=== PATIENT | female | born 1955 | race Caucasian/White ===

== ENCOUNTER 2018-06-08 12:36 | Day surgery (SDC) | payer BC ==
[~2018-06-08 12:36] MED LIST: ALBU90OI INH; FLUT.05NI; GABA300 PO; NIAC500 PO; SERT100 PO; Ultram50 MG PO; Zofran Odt4 MG SL
[2018-06-08] MEDS ORDERED: ESCI20 PO (15:21)
[2018-06-08] MEDS ORDERED: Crestor20 MG PO (15:22)
[2018-06-08 17:34] LABS: Albumin, Blood 3.4 g/dL (3.4-5.0); Anion Gap 8 mmol/L (6-16); Blood Urea Nitrogen 33 mg/dL (8-24); Bun/Creatinine Ratio 12.4 (12.0-20.0); CO2, Blood 21 mmol/L (21-32); Calcium, Blood 7.8 mg/dL (8.5-10.1); Chloride, Blood 109 mmol/L (98-108); Creatinine, Blood 2.67 mg/dL (0.40-1.00); Glomerular Filtration Rate 19 (60-); Glucose, Blood 97 mg/dL (70-99); Phosphorus, Blood 2.7 mg/dL (2.5-4.9); Potassium, Blood 3.7 mmol/L (3.5-5.5); Sodium, Blood 138 mmol/L (136-145)
== END 2018-06-08 16:30 | disposition home or self-care (01) ==
LOC: ATC 12:36
PROVIDERS: Internal Medicine
DX: N18.3 Chronic kidney disease, stage 3 (moderate) (principal); R80.9 Proteinuria, unspecified; I10 Essential (primary) hypertension; E78.5 Hyperlipidemia, unspecified; J44.9 Chronic obstructive pulmonary disease, unspecified; Z87.891 Personal history of nicotine dependence
CPT/HCPCS: 80069; 96365; J0696; J7030

== ENCOUNTER → 2018-06-19 | Outpatient (CLI) | payer BC ==
[~2018-06-19] MED LIST changes: +Crestor20 MG PO; +ESCI20 PO
[2018-06-19 15:12] LABS: Creatinine Urine 33.6 mg/dL (27.00-270.00); Protein, Urine Quantitative 58.4 mg/dL (0.0-11.9)
[2018-06-23 14:07] LABS: M-SPIKE, % Not Observed % (Not Observed); PROTEIN,TOTAL,URINE 45.9 mg/dL (Not Estab.)
== END ==
LOC: LAB SHORT 14:20 → LAB 14:20
PROVIDERS: Internal Medicine
DX: N17.9 Acute kidney failure, unspecified (principal); R80.9 Proteinuria, unspecified
CPT/HCPCS: 81050; 82570; 84156; 84166

== ENCOUNTER → 2018-07-21 | Outpatient (CLI) | payer BC ==
[2018-07-25 15:06] LABS: HPV 16 Positive (Negative); HPV 18 Negative (Negative); HPV OTHER HR TYPES Negative (Negative)
== END | disposition home or self-care (01) ==
LOC: LAB SHORT 17:40 → LAB 17:40
PROVIDERS: Nurse Practitioner Family
DX: Z01.411 Encounter for gynecological examination (general) (routine) with abnormal findings (principal)
CPT/HCPCS: 87624; G0145

== ENCOUNTER → 2018-08-29 | Outpatient (CLI) | payer BC | END | disposition home or self-care (01) | LOC: LAB SHORT 08:24 → PLD 08:24 | DX: N88.8 Other specified noninflammatory disorders of cervix uteri (principal); R87.618 Other abnormal cytological findings on specimens from cervix uteri | CPT/HCPCS: 88305 ==

== ENCOUNTER → 2019-02-15 | Outpatient (CLI) | payer MEDICARE ==
[2019-02-17 05:53] LABS: Stool Occult Bld Immuno 1 Positive (NEGATIVE); Stool Occult Bld Immuno 2 Positive (NEGATIVE); Stool Occult Bld Immuno 3 Positive (NEGATIVE)
== END | disposition home or self-care (01) ==
LOC: LAB EV 13:23
PROVIDERS: Nurse Practitioner Family
DX: D64.9 Anemia, unspecified (principal)
CPT/HCPCS: 82274

== ENCOUNTER 2019-02-20 15:33 | Day surgery (SDC) | payer MEDICARE ==
[2019-04-18] MEDS ORDERED: ESCI20 PO (14:37)
== END 2019-02-20 17:12 | disposition home or self-care (01) ==
LOC: ATC 15:33
DX: N17.9 Acute kidney failure, unspecified (principal); I12.9 Hypertensive chronic kidney disease with stage 1 through stage 4 chronic kidney disease, or unspecified chronic kidney disease; N18.3 Chronic kidney disease, stage 3 (moderate); D63.1 Anemia in chronic kidney disease; J44.9 Chronic obstructive pulmonary disease, unspecified; F32.9 Major depressive disorder, single episode, unspecified; F41.9 Anxiety disorder, unspecified; G43.909 Migraine, unspecified, not intractable, without status migrainosus; E78.5 Hyperlipidemia, unspecified; E55.9 Vitamin D deficiency, unspecified; Z79.899 Other long term (current) drug therapy; Z87.891 Personal history of nicotine dependence; Z88.5 Allergy status to narcotic agent; Z88.8 Allergy status to other drugs, medicaments and biological substances; Z91.048 Other nonmedicinal substance allergy status
CPT/HCPCS: 96360; J7030

== ENCOUNTER 2019-04-25 07:01 | Day surgery (SDC) | payer MEDICARE ==
[~2019-04-25] VITALS: Ht 152.4 cm; Wt 78.1 kg
== END 2019-04-25 09:39 | disposition home or self-care (01) ==
LOC: ORSCSDS 07:01
PROVIDERS: Internal Medicine Gastroenterology
PROC: 0DBK8ZX Excision of Ascending Colon, Via Natural or Artificial Opening Endoscopic, Diagnostic (ICD-10-PCS; principal; 2019-04-25 08:00)
PROC: 0DB98ZX Excision of Duodenum, Via Natural or Artificial Opening Endoscopic, Diagnostic (ICD-10-PCS; principal; 2019-04-25 08:00)
PROC: 0DBN8ZX Excision of Sigmoid Colon, Via Natural or Artificial Opening Endoscopic, Diagnostic (ICD-10-PCS; principal; 2019-04-25 08:00)
PROC: 0DBM8ZX Excision of Descending Colon, Via Natural or Artificial Opening Endoscopic, Diagnostic (ICD-10-PCS; principal; 2019-04-25 08:00)
PROC: 0DB68ZX Excision of Stomach, Via Natural or Artificial Opening Endoscopic, Diagnostic (ICD-10-PCS; principal; 2019-04-25 08:00)
DX: D50.9 Iron deficiency anemia, unspecified (principal); K92.1 Melena; D12.2 Benign neoplasm of ascending colon; D12.4 Benign neoplasm of descending colon; D12.5 Benign neoplasm of sigmoid colon; K29.80 Duodenitis without bleeding; K29.70 Gastritis, unspecified, without bleeding; K57.30 Diverticulosis of large intestine without perforation or abscess without bleeding; Z87.891 Personal history of nicotine dependence; I10 Essential (primary) hypertension; Z86.718 Personal history of other venous thrombosis and embolism; N18.3 Chronic kidney disease, stage 3 (moderate); Z79.01 Long term (current) use of anticoagulants; E78.5 Hyperlipidemia, unspecified; J44.9 Chronic obstructive pulmonary disease, unspecified
CPT/HCPCS: 88305; 88342; J0461; J2405; J2704

== ENCOUNTER → 2021-02-10 | Outpatient (CLI) | payer MEDICARE ==
[2021-02-12 15:12] LABS: HPV 16 Negative (Negative); HPV 18 Negative (Negative); HPV OTHER HR TYPES Negative (Negative)
== END | disposition home or self-care (01) ==
LOC: LAB 17:10 → LAB SHORT 17:10
PROVIDERS: Obstetrics & Gynecology
DX: Z01.419 Encounter for gynecological examination (general) (routine) without abnormal findings (principal)
CPT/HCPCS: 87624; G0123

== ENCOUNTER → 2021-07-06 | Outpatient (CLI) | payer MEDICARE | END | disposition home or self-care (01) | LOC: LAB SHORT 08:52 | DX: L57.0 Actinic keratosis (principal); L81.4 Other melanin hyperpigmentation | CPT/HCPCS: 88305; 88312 ==

== ENCOUNTER 2024-04-12 13:19 | Day surgery (SDC) | payer MEDICARE ==
[~2024-04-12] VITALS: Ht 154.9 cm; Wt 82.8 kg
[~2024-04-12 13:19] MED LIST changes: +Atropine Sulfate 0.1 MG/ML 10ML SYR ONE; +Glycopyrrolate 0.2 MG/ML 1MLVIAL ONE; +Lactated Ringer's 1,000 ML IV ONE; +Ondansetron HCl 2 MG / ML 2ML Vial ONE; +ePHEDrine Sulfate 50 MG/ML 1ML Injection ONE; +propofoL 50 ML IV ONE
[2024-04-12] MEDS ORDERED: METF500 PO (13:48)
[2024-04-12] MEDS ORDERED: ROSUVASTATIN CA10 MG PO (13:49)
[2024-04-12] MEDS ORDERED: Lactated Ringer's 1,000 ML IV ONE (13:58)
[2024-04-12 15:53] VITALS: BP 132/78
== END 2024-04-12 15:58 | disposition home or self-care (01) ==
LOC: ORSCSDS 13:19
PROVIDERS: Internal Medicine Gastroenterology
PROC: 0DBK8ZX Excision of Ascending Colon, Via Natural or Artificial Opening Endoscopic, Diagnostic (ICD-10-PCS; principal; 2024-04-12 14:45)
DX: Z12.11 Encounter for screening for malignant neoplasm of colon (principal); D12.2 Benign neoplasm of ascending colon; K57.30 Diverticulosis of large intestine without perforation or abscess without bleeding; Z86.0101 Personal history of adenomatous and serrated colon polyps; I10 Essential (primary) hypertension; E11.22 Type 2 diabetes mellitus with diabetic chronic kidney disease; I12.9 Hypertensive chronic kidney disease with stage 1 through stage 4 chronic kidney disease, or unspecified chronic kidney disease; N18.30 Chronic kidney disease, stage 3 unspecified; G47.33 Obstructive sleep apnea (adult) (pediatric); J44.9 Chronic obstructive pulmonary disease, unspecified; E78.5 Hyperlipidemia, unspecified; E66.9 Obesity, unspecified; Z68.34 Body mass index [BMI] 34.0-34.9, adult; Z79.84 Long term (current) use of oral hypoglycemic drugs; Z79.899 Other long term (current) drug therapy; Z87.891 Personal history of nicotine dependence
CPT/HCPCS: 82947; 88305; J0461; J2405; J2704; J7120

== ENCOUNTER → 2024-04-16 | Outpatient (CLI) | payer MEDICARE ==
[~2024-04-16] MED LIST changes: -Atropine Sulfate 0.1 MG/ML 10ML SYR ONE; -Glycopyrrolate 0.2 MG/ML 1MLVIAL ONE; -Lactated Ringer's 1,000 ML IV ONE; +METF500 PO; -Ondansetron HCl 2 MG / ML 2ML Vial ONE; +ROSUVASTATIN CA10 MG PO; -ePHEDrine Sulfate 50 MG/ML 1ML Injection ONE; -propofoL 50 ML IV ONE
[2024-04-24 15:29] LABS: HPV HIGH RISK BY TMA Not Detected; HPV SOURCE Cervical
== END ==
LOC: LAB SHORT 16:35 → LAB 16:35
PROVIDERS: Family Medicine
DX: Z01.419 Encounter for gynecological examination (general) (routine) without abnormal findings (principal); Z87.42 Personal history of other diseases of the female genital tract
CPT/HCPCS: 87624; G0123

== ENCOUNTER → 2024-12-10 | Outpatient (CLI) | payer MEDICARE ==
[2024-12-10 19:06] LABS: Campylobacter Sp Not Detected (NOT DETECT); E. Coli O157 Not Detected (NOT DETECT); Enteroaggregative E. coli-EAEC Not Detected (NOT DETECT); Enteropathogenic E. coli-EPEC Not Detected (NOT DETECT); Enterotoxigenic E. coli-ETEC Not Detected (NOT DETECT); Salmonella Sp Not Detected (NOT DETECT); Shiga Toxin-prod E. coli-STEC Not Detected (NOT DETECT); Shigella/Enteroin E. coli-EIEC Not Detected (NOT DETECT); Vibrio Sp Not Detected (NOT DETECT)
== END ==
LOC: LAB SHORT 13:00 → LAB 13:00
PROVIDERS: Physician Assistant Medical
DX: R19.7 Diarrhea, unspecified (principal)
CPT/HCPCS: 87507

== ENCOUNTER 2024-12-29 14:59 | Inpatient (IN) | payer MEDICARE ==
[~2024-12-29] VITALS: Ht 157.5 cm; Wt 74.8 kg
[~2024-12-29 14:59] MED LIST changes: -ROSUVASTATIN CA10 MG PO; +ROSUVASTATIN CA20 MG PO
[2024-12-29 15:50] LABS: BASOPHILS ABSOLUTE AUTO 0.03 K/mm3 (0.00-0.23); BASOPHILS PERCENT AUTO 0 % (0-2); EOSINOPHILS ABSOLUTE AUTO 0.03 K/mm3 (0.00-0.68); EOSINOPHILS PERCENT AUTO 0 % (0-6); Hematocrit 29.7 % (33.0-51.0); Hemoglobin 10.5 g/dL (11.5-16.0); IMMATURE GRAN ABSOLUTE AUTO 0.04 K/mm3 (0.00-0.10); IMMATURE GRAN PERCENT AUTO 0 % (0-1); LYMPHOCYTES ABSOLUTE AUTO 1.23 K/mm3 (0.84-5.20); LYMPHOCYTES PERCENT AUTO 13 % (21-46); MONOCYTES ABSOLUTE AUTO 0.71 K/mm3 (0.16-1.47); MONOCYTES PERCENT AUTO 8 % (4-13); Mean Corpuscular HGB Conc 35.4 g/dL (31.5-36.5); Mean Corpuscular Volume 95 fL (80-100); NEUTROPHILS ABSOLUTE AUTO 7.39 K/mm3 (1.96-9.15); NEUTROPHILS PERCENT AUTO 79 % (41-73); NRBC ABSOLUTE 0.00 K/mm3 (0.00-0.02); NRBC Auto 0.0 /100 WBC (0.0-0.2); Platelet Count 224 K/mm3 (150-400); RDW Coefficient Variation 12.2 % (11.7-14.2); RDW Standard Deviation 42.0 fL (35.1-46.3)
[2024-12-29 16:01] LABS: Alanine Aminotransfer (ALT/SGP 123.0 U/L (12-78); Albumin, Blood 3.3 g/dL (3.4-5.0); Albumin/Globulin Ratio 0.8 (0.8-1.8); Anion Gap 15.0 mmol/L (3-11); Aspartate Aminotrans (AST/SGOT 266.0 U/L (12-37); Bilirubin, Total 1.0 mg/dL (0.1-1.0); Blood Urea Nitrogen 48.0 mg/dL (8-24); CO2, Blood 20.0 mmol/L (21-32); Calcium, Blood 9.6 mg/dL (8.5-10.1); Chloride, Blood 98.0 mmol/L (98-108); Creatinine, Blood 3.55 mg/dL (0.40-1.00); Globulin, Blood 3.9 g/dL (2.2-4.0); Glucose, Blood 115.0 mg/dL (70-99); Potassium, Blood 3.9 mmol/L (3.5-5.5); Sodium, Blood 129.0 mmol/L (136-145); Total Protein, Blood 7.2 g/dL (6.4-8.2)
[2024-12-29] MEDS ORDERED: NS 1,000 ML IV SCH ×3 (18:15→23:15)
[2024-12-29] MEDS ORDERED: FLU VACC TS2025-26(6MOS UP)/PF 45 MCG/0.5 ML SYRINGE IM SCH (18:20)
[2024-12-29] MEDS ORDERED: Ondansetron HCl 2 MG / ML 2ML Vial IV PRN (18:25)
[2024-12-29] MEDS ORDERED: Albuterol 2.5 MG/3 ML VIAL INH PRN (18:40)
[2024-12-29 19:26] LABS: pH Blood Venous 7.26 (7.34-7.37)
[2024-12-29 19:33] LABS: Source, Urine Clean Catch
[2024-12-29 19:36] LABS: Bilirubin, Urine Neg (Neg); Color, Urine Yellow (P-Yellow); Glucose Qualitative, Urine Neg (Neg); Ketones, Urine 1+ (Neg); Leukocyte Esterase, Urine 3+ (Neg); Protein, Urine 3+ (Neg); Specific Gravity, Urine 1.010 (1.003-1.022); Urobilinogen, Urine NORM (Normal)
[2024-12-29 19:47] LABS: White Blood Cells, Urine 25-50 /hpf (0-5)
[2024-12-29 19:49] LABS: Influenza A, PCR NEGATIVE (NEGATIVE); Influenza B, PCR NEGATIVE (NEGATIVE); Resp Syncytial Virus, PCR NEGATIVE (NEGATIVE); SARS-Cov-2 (COVID-19) PCR, MMC NEGATIVE (NEGATIVE)
[2024-12-29 19:52] LABS: Ferritin, Serum 258.0 ng/mL (8-252); Magnesium, Blood 2.5 mg/dL (1.6-2.4); Total Iron Binding Capacity 311.0 ug/dL (250-450)
[2024-12-29 20:38] VITALS: BP 152/88
[2024-12-29] MEDS ORDERED: Heparin Sodium,Porcine 5,000 UNIT/0.5 ML SDV SC SCH (21:00)
[2024-12-29] MEDS ORDERED: Insulin Human Lispro 100 Units/ML 3ML Syringe SC SCH (21:00)
[2024-12-29 23:50] VITALS: BP 104/66
--- NOTE | 2024-12-30 04:06 | NUR ---
PATIENT ADMITTED FROM ER VIA STRETCHER, ALERT AND ORIENTED, LUNG DIMINISHED TO BASE, COMPLAINED OF SEVERAL DAYS OF DIARRHEA AND LOOSE STOOLS, ABD SOFT NON TENDER, COMPLAINED OF WEAKNESS, DIFFICULTY MOVING AND GETTING IN AND OUT OF BED ALONE WITHOUT HELP, STATES SHE STARTED ON A NEW DIET THIS MONTH FODMOD, HAS HAD LOOSE STOOLS SINCE, STARTED GETTING WEAKER THOUGH. FELL AT HOME ABOUT A MONTH AGO CARRYING TOO MUCH, UP TO BEDSIDE COMMODE WITH 1 PERSON MODERATE ASSIST, VOIDING CLEAR YELLOW URINE, CPAP SET UP BY RT, TOLERATING WELL, CALL LIGHT IN REACH, BED IN LOW ANDLOCKED POSITION, BED ALARM ON FOR FALL PRECAUTIONS.
[2024-12-30] MEDS ORDERED: Inderal 20 mg T20 MG PO (04:14)
[2024-12-30 04:28] VITALS: BP 131/72
[2024-12-30] MEDS ORDERED: BUSP5 PO (04:37)
[2024-12-30 05:44] LABS: Hematocrit 26.0 % (33.0-51.0); Hemoglobin 9.0 g/dL (11.5-16.0); Mean Corpuscular HGB Conc 34.6 g/dL (31.5-36.5); Mean Corpuscular Volume 96 fL (80-100); NRBC ABSOLUTE 0.00 K/mm3 (0.00-0.02); NRBC Auto 0.0 /100 WBC (0.0-0.2); Platelet Count 159 K/mm3 (150-400); RDW Coefficient Variation 12.3 % (11.7-14.2); RDW Standard Deviation 42.1 fL (35.1-46.3)
[2024-12-30 07:12] LABS: Alanine Aminotransfer (ALT/SGP 91.0 U/L (12-78); Albumin, Blood 2.7 g/dL (3.4-5.0); Albumin/Globulin Ratio 0.9 (0.8-1.8); Anion Gap 13.0 mmol/L (3-11); Aspartate Aminotrans (AST/SGOT 160.0 U/L (12-37); Bilirubin, Total 0.7 mg/dL (0.1-1.0); Blood Urea Nitrogen 47.0 mg/dL (8-24); CO2, Blood 18.0 mmol/L (21-32); Calcium, Blood 8.6 mg/dL (8.5-10.1); Chloride, Blood 108.0 mmol/L (98-108); Creatinine, Blood 3.05 mg/dL (0.40-1.00); Globulin, Blood 3.1 g/dL (2.2-4.0); Glucose, Blood 98.0 mg/dL (70-99); Potassium, Blood 3.0 mmol/L (3.5-5.5); Sodium, Blood 136.0 mmol/L (136-145); Total Protein, Blood 5.8 g/dL (6.4-8.2)
[2024-12-30 07:39] VITALS: BP 125/72
--- NOTE | 2024-12-30 07:50 | NUR ---
CALL FROM NITA BENAVIDEZ ABOUT PATIENT VITALS. THIS RN PLACED EYES ON PATIENT AND HR IN THE 60'S. CALLED ARCHITECTURE DRAFTER TO VERIFY AND PATIENT IS SINUS AT 67. VITAL SIGNS MONITOR SHOWED HR OF 263. TECH STATED HR HAD NOT CHANGED ON THEIR SIDE.
[2024-12-30] MEDS ORDERED: Potassium Chl 20MEQ/Water100ML 100 ML IV STA (09:00)
[2024-12-30] MEDS ORDERED: D5W-1/2NS KCl 40mEq 1,000 ML IV SCH (16:00)
[2024-12-30 19:13] VITALS: BP 114/64
[2024-12-30 23:25] VITALS: BP 113/68
[2024-12-31 04:12] VITALS: BP 110/66
--- NOTE | 2024-12-31 05:22 | NUR ---
PATIENT IN BED, ALERT AND ORIENTED, DENIES PAIN, STATES STILL FEELS WEAK, LUNGS CLEAR, USES CPAP AT NIGHT WITHOUT DIFFICULTIES, BLOOD SUGAR MONITORED PER ORDERS, DENIES NAUSEA, UP TO BEDSIDE COMMODE WITH WALKER AND STAND BY ASSIST, IV INFUSING TO LEFT FOREARM PER DR ORDERS, CALL LIGHT IN REACH, BED IN LOW AND LOCKED POSITION, BED ALARM ON, FALL PRECAUTIONS EXPLAINED TO PATIENT,WILL CONTINUE TO MONITOR.
[2024-12-31 06:27] LABS: Alanine Aminotransfer (ALT/SGP 95.0 U/L (12-78); Albumin, Blood 2.5 g/dL (3.4-5.0); Albumin/Globulin Ratio 0.8 (0.8-1.8); Anion Gap 10.0 mmol/L (3-11); Aspartate Aminotrans (AST/SGOT 127.0 U/L (12-37); Bilirubin, Direct 0.2 mg/dL (0.0-0.3); Bilirubin, Indirect 0.3 mg/dL (0.1-0.7); Bilirubin, Total 0.5 mg/dL (0.1-1.0); Blood Urea Nitrogen 38.0 mg/dL (8-24); CO2, Blood 19.0 mmol/L (21-32); Calcium, Blood 8.7 mg/dL (8.5-10.1); Chloride, Blood 113.0 mmol/L (98-108); Creatinine, Blood 2.87 mg/dL (0.40-1.00); Globulin, Blood 3.0 g/dL (2.2-4.0); Glucose, Blood 149.0 mg/dL (70-99); Phosphorus, Blood 2.1 mg/dL (2.5-4.9); Potassium, Blood 3.5 mmol/L (3.5-5.5); Sodium, Blood 138.0 mmol/L (136-145); Total Protein, Blood 5.5 g/dL (6.4-8.2)
[2024-12-31 07:17] VITALS: BP 106/69
[2024-12-31 11:05] VITALS: BP 106/69
[2024-12-31] MEDS ORDERED: Potassium Phos/Sodium Phos 250 MG PACK PO ONE (11:25)
[2024-12-31] MEDS ORDERED: METFORMIN HCL500 M3 PO (13:17)
[2024-12-31] MEDS ORDERED: LOPERAMIDE212 PO (13:17)
[2024-12-31 15:52] VITALS: BP 119/87
--- NOTE | 2024-12-31 16:56 | NUR ---
SHIFT SUMMARY PATIENT HAD SEVERAL POINTS SHE WANTED TO ADDRESS WITH DOCTOR, DURING ROUNDS, THIS RN AND DOCTOR WERE PRESENT AND ALL QUESTION AND CONCERNS WERE ANSWERED.PT AND OT EVALUATED PATIENT TODAY. EDUCATED PATIENT ON SEVERAL CONDITIONS, PUT ON WAFFLE PAD FOR PROPHYLACTIC MEASURES. PATIENT IS A&OX4, COOPERATIVE, ABLE TO MAKE NEEDS KNOWN, CALL LIGHT WITHIN REACH.
--- NOTE | 2024-12-31 17:05 | NUR ---
THIS [employer] HAS REVIEWED AND AGREES WITH ALL NOTES AND ASSESSMENTS BY ZEB RAMOS.
[2024-12-31 19:27] VITALS: BP 104/92
[2024-12-31] MEDS ORDERED: N-Acetylcysteine 600 MG CAP PO SCH (21:00)
[2025-01-01 02:55] VITALS: BP 127/80
[2025-01-01 05:33] LABS: BASOPHILS ABSOLUTE AUTO 0.02 K/mm3 (0.00-0.23); BASOPHILS PERCENT AUTO 0 % (0-2); EOSINOPHILS ABSOLUTE AUTO 0.15 K/mm3 (0.00-0.68); EOSINOPHILS PERCENT AUTO 3 % (0-6); Hematocrit 24.8 % (33.0-51.0); Hemoglobin 8.5 g/dL (11.5-16.0); IMMATURE GRAN ABSOLUTE AUTO 0.03 K/mm3 (0.00-0.10); IMMATURE GRAN PERCENT AUTO 1 % (0-1); LYMPHOCYTES ABSOLUTE AUTO 1.27 K/mm3 (0.84-5.20); LYMPHOCYTES PERCENT AUTO 24 % (21-46); MONOCYTES ABSOLUTE AUTO 0.65 K/mm3 (0.16-1.47); MONOCYTES PERCENT AUTO 13 % (4-13); Mean Corpuscular HGB Conc 34.3 g/dL (31.5-36.5); Mean Corpuscular Volume 98 fL (80-100); NEUTROPHILS ABSOLUTE AUTO 3.10 K/mm3 (1.96-9.15); NEUTROPHILS PERCENT AUTO 59 % (41-73); NRBC ABSOLUTE 0.00 K/mm3 (0.00-0.02); NRBC Auto 0.0 /100 WBC (0.0-0.2); Platelet Count 151 K/mm3 (150-400); RDW Coefficient Variation 12.6 % (11.7-14.2); RDW Standard Deviation 44.8 fL (35.1-46.3)
[2025-01-01 06:05] LABS: Alanine Aminotransfer (ALT/SGP 111.0 U/L (12-78); Albumin, Blood 2.4 g/dL (3.4-5.0); Albumin/Globulin Ratio 0.8 (0.8-1.8); Anion Gap 8.0 mmol/L (3-11); Aspartate Aminotrans (AST/SGOT 112.0 U/L (12-37); Bilirubin, Direct 0.1 mg/dL (0.0-0.3); Bilirubin, Indirect 0.3 mg/dL (0.1-0.7); Bilirubin, Total 0.4 mg/dL (0.1-1.0); Blood Urea Nitrogen 31.0 mg/dL (8-24); CO2, Blood 20.0 mmol/L (21-32); Calcium, Blood 8.4 mg/dL (8.5-10.1); Chloride, Blood 116.0 mmol/L (98-108); Creatinine, Blood 2.69 mg/dL (0.40-1.00); Globulin, Blood 3.2 g/dL (2.2-4.0); Glucose, Blood 160.0 mg/dL (70-99); Magnesium, Blood 1.7 mg/dL (1.6-2.4); Phosphorus, Blood 2.1 mg/dL (2.5-4.9); Potassium, Blood 4.0 mmol/L (3.5-5.5); Sodium, Blood 140.0 mmol/L (136-145); Thyroid Stimulating Hormone 4.08 uIU/mL (0.360-4.800); Total Protein, Blood 5.6 g/dL (6.4-8.2)
--- NOTE | 2025-01-01 06:50 | NUR ---
SHIFT SUMMARY A&OX4. ABLE TO MAKE ALL NEEDS KNOWN. CALLS APPROPRIATELY TOLERATING INFUSION WELL. DENIES CP/DISCOMFORT. WORE CPAP WHILE SLEEPING AND APPEARED TO BE ABLE TO REST WELL THROUGHOUT THE NIGHT. PT CURRENTLY RESTING IN BED AT LOWEST POSITION WITH CALL LIGHT WITHIN REACH.
[2025-01-01 07:37] VITALS: BP 119/74
[2025-01-01] MEDS ORDERED: Cyanocobalamin 1000 MCG/ML 1ML Vial IM ONE (09:00)
[2025-01-01 11:18] VITALS: BP 119/88
[2025-01-01 14:57] VITALS: BP 126/85
--- NOTE | 2025-01-01 17:47 | NUR ---
SUMMARY PT HAS NOT HADA BM, STILL PENDING STOOL SAMPLE TO BE COLLECTED. DR. CLEARY CONSULTED AND ORDERED SOME MORE LABS, URINE SAMPLE COLLECTED. HE STILL HAS NOT COME BY TO SEE PT YET TODAY BUT HE USUALLY ROUNDS LATE. PT UP IN SHOWER TODAY. TOOK A SHORT WALK IN HALLWAY ABOUT 20 FEET SBA WITH WALKER. FLUID ORDERS CALRIFIED WITH DR. ALEX. LR AT 100 INFUSING CONTINUOUSLY. ABD ULTRASOUND COMPLETED TODAY TO VISUALIZE LIVER AND GALLBLADDER, DR. ALEX TO GO OVER RESULTS WITH PATIENT STILL. PT REPORTS BLOATING/CONSTIPATION, DR. ALEX NOTFIED AND STARTED SENNA AND METAMUCIL. PT HAS CHRONIC IBS, CYCLE OF DIARRHEA VS CONSTIPATION. NO ACUTE EVENTS ON TELE. DENIES PAIN. PT CALLING APPROPRIATELY FOR ASSISTANCE.
[2025-01-01 19:48] VITALS: BP 138/84
[2025-01-01] MEDS ORDERED: Polyethylene Glycol 3350 17 gm PO SCH (21:00)
[2025-01-01 23:56] VITALS: BP 136/79
[2025-01-02 05:14] VITALS: BP 124/75
[2025-01-02 05:45] LABS: BASOPHILS ABSOLUTE AUTO 0.03 K/mm3 (0.00-0.23); BASOPHILS PERCENT AUTO 1 % (0-2); EOSINOPHILS ABSOLUTE AUTO 0.16 K/mm3 (0.00-0.68); EOSINOPHILS PERCENT AUTO 3 % (0-6); Hematocrit 25.7 % (33.0-51.0); Hemoglobin 8.7 g/dL (11.5-16.0); IMMATURE GRAN ABSOLUTE AUTO 0.05 K/mm3 (0.00-0.10); IMMATURE GRAN PERCENT AUTO 1 % (0-1); LYMPHOCYTES ABSOLUTE AUTO 1.36 K/mm3 (0.84-5.20); LYMPHOCYTES PERCENT AUTO 26 % (21-46); MONOCYTES ABSOLUTE AUTO 0.71 K/mm3 (0.16-1.47); MONOCYTES PERCENT AUTO 13 % (4-13); Mean Corpuscular HGB Conc 33.9 g/dL (31.5-36.5); Mean Corpuscular Volume 99 fL (80-100); NEUTROPHILS ABSOLUTE AUTO 2.98 K/mm3 (1.96-9.15); NEUTROPHILS PERCENT AUTO 56 % (41-73); NRBC ABSOLUTE 0.00 K/mm3 (0.00-0.02); NRBC Auto 0.0 /100 WBC (0.0-0.2); Platelet Count 153 K/mm3 (150-400); RDW Coefficient Variation 12.7 % (11.7-14.2); RDW Standard Deviation 46.0 fL (35.1-46.3)
[2025-01-02 06:20] LABS: Alanine Aminotransfer (ALT/SGP 109.0 U/L (12-78); Albumin, Blood 2.5 g/dL (3.4-5.0); Albumin/Globulin Ratio 0.8 (0.8-1.8); Anion Gap 8.0 mmol/L (3-11); Aspartate Aminotrans (AST/SGOT 96.0 U/L (12-37); Bilirubin, Direct 0.1 mg/dL (0.0-0.3); Bilirubin, Indirect 0.3 mg/dL (0.1-0.7); Bilirubin, Total 0.4 mg/dL (0.1-1.0); Blood Urea Nitrogen 25.0 mg/dL (8-24); CO2, Blood 22.0 mmol/L (21-32); Calcium, Blood 9.0 mg/dL (8.5-10.1); Chloride, Blood 115.0 mmol/L (98-108); Creatinine, Blood 2.42 mg/dL (0.40-1.00); Globulin, Blood 3.1 g/dL (2.2-4.0); Glucose, Blood 131.0 mg/dL (70-99); Magnesium, Blood 1.7 mg/dL (1.6-2.4); Phosphorus, Blood 2.2 mg/dL (2.5-4.9); Potassium, Blood 4.5 mmol/L (3.5-5.5); Sodium, Blood 140.0 mmol/L (136-145); Total Protein, Blood 5.6 g/dL (6.4-8.2)
--- NOTE | 2025-01-02 06:28 | NUR ---
SHIFT SUMMARY A&OX4. ABLE TO MAKE NEEDS KNOWN. PT WAS ABLE TO HAVE A BM AND STATED SHE FELT BETTER. WORE CPAP THROUGHOUT NIGHT WHILE SLEEPING. CURRENTLY RESTING IN BED AT LOWEST POSITION WITH CALL LIGHT WITHIN REACH.
[2025-01-02 08:15] VITALS: BP 151/87
[2025-01-02 11:11] VITALS: BP 136/70
[2025-01-02 16:30] VITALS: BP 143/75
--- NOTE | 2025-01-02 17:09 | NUR ---
SUMMARY A/OX4. ROOM AIR CALLING APPROPRIATELY. STOOL SAMPLE COLLECTED. PENDING RESULTS. NO ACUTE EVENTS ON TELE. TOOK A WALK IN THE HALLWAY WITH OT, SBA WITH FWW. HELD SOME STOOL SOFTENERS THIS MORNING PT HAD A BM OVERNIGHT AND A BM THIS MORNING PIOR TO DOSING. PT HAS A HX OF CHRONIC IBS AND DIARRHEA.
[2025-01-02 19:39] VITALS: BP 119/74
[2025-01-02 23:43] VITALS: BP 132/97
--- NOTE | 2025-01-03 00:28 | NUR ---
SPOKE WITH ROUNDING PROVIDER OUT SIDE OF PT ROOM IN REGARDS TO THE POSSIBILITY OF DC OF IV AND FLUIDS. NOTED THE IV WAS STARTING TO LEAK OFF AND ON AND THE POSSIBILTY OF HAVING TO START A NEW IV IN A DIFFERNT SITE. ALSO NOTED THAT SHE MIGHT BE PENDING DC IN THE AM. PROVIDER WAS AGREEABLE TO STOPPING FLUIDS AND ENCOURING ORAL FLUID INTAKE. SHE STATED THAT WOULD GIVE A BETTER IDEA IN AM LABS HOW SHE IS DOING.
[2025-01-03 04:21] VITALS: BP 134/73
--- NOTE | 2025-01-03 06:29 | NUR ---
SHIFT SUMMARY: Pt admitted for REMI and is a full code. Is alert and able to make needs known. ADLs have been SBA. denies pain or discomfort when asked. Iv to left wrist/forearm is patent with dressing that is CDI. telly noted sinus in the 80s. Had a run of SVT for about 8 sec. Provider was notified and gave T.O. for a chem panel and mag if not already ordered for am labs.
[2025-01-03 06:46] LABS: BASOPHILS ABSOLUTE AUTO 0.04 K/mm3 (0.00-0.23); BASOPHILS PERCENT AUTO 1 % (0-2); EOSINOPHILS ABSOLUTE AUTO 0.19 K/mm3 (0.00-0.68); EOSINOPHILS PERCENT AUTO 4 % (0-6); Hematocrit 25.8 % (33.0-51.0); Hemoglobin 8.7 g/dL (11.5-16.0); IMMATURE GRAN ABSOLUTE AUTO 0.04 K/mm3 (0.00-0.10); IMMATURE GRAN PERCENT AUTO 1 % (0-1); LYMPHOCYTES ABSOLUTE AUTO 1.26 K/mm3 (0.84-5.20); LYMPHOCYTES PERCENT AUTO 26 % (21-46); MONOCYTES ABSOLUTE AUTO 0.75 K/mm3 (0.16-1.47); MONOCYTES PERCENT AUTO 15 % (4-13); Mean Corpuscular HGB Conc 33.7 g/dL (31.5-36.5); Mean Corpuscular Volume 101 fL (80-100); NEUTROPHILS ABSOLUTE AUTO 2.66 K/mm3 (1.96-9.15); NEUTROPHILS PERCENT AUTO 54 % (41-73); NRBC ABSOLUTE 0.00 K/mm3 (0.00-0.02); NRBC Auto 0.0 /100 WBC (0.0-0.2); Platelet Count 177 K/mm3 (150-400); RDW Coefficient Variation 12.9 % (11.7-14.2); RDW Standard Deviation 47.3 fL (35.1-46.3)
[2025-01-03 07:16] LABS: Alanine Aminotransfer (ALT/SGP 88.0 U/L (12-78); Albumin, Blood 2.6 g/dL (3.4-5.0); Albumin/Globulin Ratio 0.8 (0.8-1.8); Anion Gap 9.0 mmol/L (3-11); Aspartate Aminotrans (AST/SGOT 53.0 U/L (12-37); Bilirubin, Total 0.7 mg/dL (0.1-1.0); Blood Urea Nitrogen 24.0 mg/dL (8-24); CO2, Blood 21.0 mmol/L (21-32); Calcium, Blood 8.7 mg/dL (8.5-10.1); Chloride, Blood 113.0 mmol/L (98-108); Creatinine, Blood 2.27 mg/dL (0.40-1.00); Globulin, Blood 3.1 g/dL (2.2-4.0); Glucose, Blood 118.0 mg/dL (70-99); Magnesium, Blood 1.7 mg/dL (1.6-2.4); Phosphorus, Blood 2.6 mg/dL (2.5-4.9); Potassium, Blood 4.1 mmol/L (3.5-5.5); Sodium, Blood 139.0 mmol/L (136-145); Total Protein, Blood 5.7 g/dL (6.4-8.2)
[2025-01-03 07:27] VITALS: BP 124/84
--- NOTE | 2025-01-03 10:11 | NUR ---
pt sitting up in the chair for breakfast, a/ox4, pleasant and cooperative with care, follows commands well, lungs are clear t/o, on r/a, uses cpap at hs, hrr, tele in palce running sr per monitor, see strip, trace edema noted to b/l le, ppp+1, cap refill <3 sec, vs stable, afebrile, piv to lfa site is clear and patent, btx4, abd flat soft notnender, voids without diff, skin c/w/d,a rhiannon gomez, call light in reach.
[2025-01-03 11:38] VITALS: BP 122/69
[2025-01-03 15:42] VITALS: BP 142/75
[2025-01-03] MEDS ORDERED: CEPH500 PO (16:00)
[2025-01-03] MEDS ORDERED: JARDIANCE10 MG PO (16:01)
[2025-01-03] MEDS ORDERED: B-121000 MC3 PO (16:01)
[2025-01-03] MEDS ORDERED: METAMUCIL174 GM PO (16:04)
--- NOTE | 2025-01-03 17:51 | NUR ---
Pt has been discharged to home, went over discharge instructions with her, verbalized understanding, [facility] meds [facility]ed [facility], piv removed intact, left vis wheelchair with record tester and son in attendence.
[2025-01-03 19:38] LABS: HBV CORE ANTIBODIES,TOTAL Negative (Negative)
[2025-01-03] MEDS ORDERED: Lactobacil 2-S.Thermo-Bifido 1 1 Cap PO SCH (21:00)
[2025-01-04 07:57] LABS: MMA S/P,VITAMIN B12 STATUS 0.92 umol/L (0.00-0.40)
[2025-01-04 13:49] LABS: COMPLEMENT COMPONENT 3 126 mg/dL (90-180); COMPLEMENT COMPONENT 4 24 mg/dL (10-40)
[2025-01-05 19:54] LABS: ALPHA 1 GLOBULIN 0.40 g/dL (0.19-0.46); ALPHA 2 GLOBULIN 0.71 g/dL (0.48-1.05); BETA GLOBULIN 0.67 g/dL (0.48-1.10); GAMMA 0.75 g/dL (0.62-1.51); IMMUNOFIXATION REFLEX Not Done
[2025-01-05 19:54] LABS: PANCREATIC ELASTASE,FECAL 619 ug/g (>=100)
== END 2025-01-03 17:46 | disposition home health service (06) | DRG 683 ==
LOC: ER 14:59 → MEDS 18:20
PROVIDERS: Family Medicine; Hospitalist; Internal Medicine Endocrinology, Diabetes & Metabolism; Nurse Practitioner Acute Care; Student in an Organized Health Care Education/Training Program; ADMIT Internal Medicine
DX: N17.9 Acute kidney failure, unspecified (principal); E87.1 Hypo-osmolality and hyponatremia; E87.20 Acidosis, unspecified; M62.82 Rhabdomyolysis; N39.0 Urinary tract infection, site not specified; E11.22 Type 2 diabetes mellitus with diabetic chronic kidney disease; I12.9 Hypertensive chronic kidney disease with stage 1 through stage 4 chronic kidney disease, or unspecified chronic kidney disease; G47.33 Obstructive sleep apnea (adult) (pediatric); F41.9 Anxiety disorder, unspecified; N18.4 Chronic kidney disease, stage 4 (severe); F10.20 Alcohol dependence, uncomplicated; E78.5 Hyperlipidemia, unspecified; E66.3 Overweight; E11.59 Type 2 diabetes mellitus with other circulatory complications; E86.0 Dehydration; R74.01 Elevation of levels of liver transaminase levels; D63.1 Anemia in chronic kidney disease; E87.6 Hypokalemia; K58.9 Irritable bowel syndrome, unspecified; Z74.01 Bed confinement status; Z87.19 Personal history of other diseases of the digestive system; Z88.5 Allergy status to narcotic agent; Z91.048 Other nonmedicinal substance allergy status; Z88.8 Allergy status to other drugs, medicaments and biological substances; Z88.1 Allergy status to other antibiotic agents; Z79.84 Long term (current) use of oral hypoglycemic drugs; Z79.899 Other long term (current) drug therapy; Z98.1 Arthrodesis status; Z98.890 Other specified postprocedural states
CPT/HCPCS: 36415; 76705; 80053; 81001; 82248; 82550; 82570; 82607; 82728; 82746; 82803; 82947; 83540; 83550; 83690; 83735; 83921; 84100; 84156; 84443; 85025; 85027; 86160; 86704; 87077; 87086; 87186; 87637; 93005; 93010; 94660; 94760; 94762; 97110; 97116; 97161; 97165; 97530; 97535; 99285-25; A9270; J1644; J3420; J3480; J7030; J7120

== ENCOUNTER 2025-03-07 20:34 | Emergency (ER) | payer MEDICARE ==
[~2025-03-07] VITALS: Ht 157.5 cm; Wt 74.8 kg
[~2025-03-07 20:34] MED LIST changes: +B-121000 MC3 PO; +BUSP5 PO; +CEPH500 PO; +Inderal 20 mg T20 MG PO; +JARDIANCE10 MG PO; +LOPERAMIDE212 PO; +METAMUCIL174 GM PO; +METFORMIN HCL500 M3 PO
[2025-03-07 22:00] LABS: BASOPHILS ABSOLUTE AUTO 0.05 K/mm3 (0.00-0.23); BASOPHILS PERCENT AUTO 1 % (0-2); EOSINOPHILS ABSOLUTE AUTO 0.22 K/mm3 (0.00-0.68); EOSINOPHILS PERCENT AUTO 3 % (0-6); Hematocrit 30.8 % (33.0-51.0); Hemoglobin 10.0 g/dL (11.5-16.0); IMMATURE GRAN ABSOLUTE AUTO 0.03 K/mm3 (0.00-0.10); IMMATURE GRAN PERCENT AUTO 0 % (0-1); LYMPHOCYTES ABSOLUTE AUTO 1.88 K/mm3 (0.84-5.20); LYMPHOCYTES PERCENT AUTO 24 % (21-46); MONOCYTES ABSOLUTE AUTO 0.73 K/mm3 (0.16-1.47); MONOCYTES PERCENT AUTO 9 % (4-13); Mean Corpuscular HGB Conc 32.5 g/dL (31.5-36.5); Mean Corpuscular Volume 97 fL (80-100); NEUTROPHILS ABSOLUTE AUTO 4.86 K/mm3 (1.96-9.15); NEUTROPHILS PERCENT AUTO 63 % (41-73); NRBC ABSOLUTE 0.00 K/mm3 (0.00-0.02); NRBC Auto 0.0 /100 WBC (0.0-0.2); Platelet Count 271 K/mm3 (150-400); RDW Coefficient Variation 12.0 % (11.7-14.2); RDW Standard Deviation 43.0 fL (35.1-46.3)
[2025-03-07 22:06] LABS: Alanine Aminotransfer (ALT/SGP 53.0 U/L (12-78); Albumin, Blood 3.4 g/dL (3.4-5.0); Albumin/Globulin Ratio 1.0 (0.8-1.8); Anion Gap 10.0 mmol/L (3-11); Aspartate Aminotrans (AST/SGOT 27.0 U/L (12-37); Bilirubin, Total 0.5 mg/dL (0.1-1.0); Blood Urea Nitrogen 38.0 mg/dL (8-24); CO2, Blood 24.0 mmol/L (21-32); Calcium, Blood 9.2 mg/dL (8.5-10.1); Chloride, Blood 106.0 mmol/L (98-108); Creatinine, Blood 1.27 mg/dL (0.40-1.00); Globulin, Blood 3.4 g/dL (2.2-4.0); Glucose, Blood 130.0 mg/dL (70-99); Potassium, Blood 4.1 mmol/L (3.5-5.5); Sodium, Blood 136.0 mmol/L (136-145); Total Protein, Blood 6.8 g/dL (6.4-8.2)
[2025-03-08 01:30] VITALS: BP 119/73
== END 2025-03-08 01:45 | disposition home or self-care (01) ==
LOC: ER 20:34
PROVIDERS: Emergency Medicine
DX: R55 Syncope and collapse (principal); I10 Essential (primary) hypertension; Z87.891 Personal history of nicotine dependence; Z79.899 Other long term (current) drug therapy; Z88.0 Allergy status to penicillin; Z91.018 Allergy to other foods; Z88.1 Allergy status to other antibiotic agents; Z88.8 Allergy status to other drugs, medicaments and biological substances
CPT/HCPCS: 80053; 85025; 93005; 93010; 99284-25